=== PATIENT | female | born 1995 | race Caucasian/White ===

== ENCOUNTER 2016-10-13 14:41 | Emergency (ER) | payer MEDICAID, OTHER ==
[~2016-10-13] VITALS: Ht 167.6 cm; Wt 95.7 kg
[2016-10-13] MEDS ORDERED: ONDANSETRON 2MG/ML, 2ML IVPush ONE ×2 (15:30→18:30)
[2016-10-13] MEDS ORDERED: SODIUM CHLORIDE FLUSH 10ML SYR IVF ONE (15:30)
[2016-10-13] MEDS ORDERED: SODIUM CHLORIDE 0.9% 1,000ML IVBOLUS ONE (15:30)
[2016-10-13] MEDS ORDERED: KETOROLAC 30 MG/1 ML IVPush ONE (15:30)
[2016-10-13 16:01] LABS: BLOOD UREA NITROGEN 15 mg/dL (7-18)
[2016-10-13] MEDS ORDERED: KETOROLAC 30 MG/1 ML ONE (16:02)
[2016-10-13] MEDS ORDERED: ONDANSETRON 2MG/ML, 2ML ONE (16:02)
[2016-10-13 16:26] LABS: RAPID INFLUENZA A Negative (Negative); RAPID INFLUENZA B Negative (Negative)
[2016-10-13 16:48] LABS: HCG UR OBC PASS
[2016-10-13] MEDS ORDERED: HYDROmorphone 1 MG/ML, 1ML IVPush PRN (18:30)
[2016-10-13 18:39] VITALS: BP 114/65
== END 2016-10-13 18:41 | disposition home or self-care (01) ==
LOC: ED 17:06
DX: B34.9 Viral infection, unspecified (principal); N30.00 Acute cystitis without hematuria; F17.210 Nicotine dependence, cigarettes, uncomplicated; E11.9 Type 2 diabetes mellitus without complications
CPT/HCPCS: 36415; 71020; 80048; 81001; 81025; 82040; 85025; 87086; 87400; 96361; 96374; 96375; 99285; J1885; J2405; J7030

== ENCOUNTER 2017-04-04 05:15 | Emergency (ER) | payer MEDICAID ==
[~2017-04-04] VITALS: Ht 170.2 cm; Wt 105.0 kg
[2017-04-04 05:53] LABS: HEMOGLOBIN 15.1 g/dL (11.7-16.4); WHITE BLOOD COUNT 9.2 x10^3/uL (3.4-10)
[2017-04-04 05:54] LABS: HEMATOCRIT 43.7 % (34.6-47.8)
[2017-04-04 06:01] LABS: ASPARTATE AMINO TRANSFERASE 24 U/L (15-37); BLOOD UREA NITROGEN 8 mg/dL (7-18)
[2017-04-04] MEDS ORDERED: MAALOX/HYOSCYAMINE/LIDOCAINE 45 ML BTL ONE (06:58)
[2017-04-04] MEDS ORDERED: MAALOX/HYOSCYAMINE/LIDOCAINE 45 ML BTL PO ONE (07:00)
[2017-04-04 08:03] VITALS: BP 108/68
== END 2017-04-04 08:06 | disposition home or self-care (01) ==
LOC: ED 05:27
DX: K29.00 Acute gastritis without bleeding (principal); N30.00 Acute cystitis without hematuria; F17.210 Nicotine dependence, cigarettes, uncomplicated
CPT/HCPCS: 36415; 76700; 80053; 81001; 83690; 84703; 85025; 87077; 87086; 87147; 87186; 99285

== ENCOUNTER 2017-06-15 08:05 | Emergency (ER) | payer MEDICAID ==
[~2017-06-15] VITALS: Ht 170.2 cm; Wt 97.0 kg
[2017-06-15 08:06] VITALS: BP 131/87
[2017-06-15] MEDS ORDERED: PROPARACAINE OPHTH 0.5%, 15ML ONE (08:25)
[2017-06-15] MEDS ORDERED: FLUORESCEIN OPHTHALMIC 1 MG STRIP ONE (08:25)
== END 2017-06-15 09:09 | disposition home or self-care (01) ==
LOC: ED 09:03
DX: H10.023 Other mucopurulent conjunctivitis, bilateral (principal); E11.9 Type 2 diabetes mellitus without complications
CPT/HCPCS: 99283

== ENCOUNTER 2017-07-29 19:13 | Emergency (ER) | payer MEDICAID ==
[~2017-07-29] VITALS: Ht 170.2 cm; Wt 96.5 kg
[2017-07-29 19:14] VITALS: BP 143/91
[2017-07-29] MEDS ORDERED: LIDOCAINE-MPF 1%, 5ML INFIL ONE (19:30)
[2017-07-29] MEDS ORDERED: BUPIVACAINE/PF-EPI 0.25% 1:200K SQ ONE (19:30)
[2017-07-29] MEDS ORDERED: BUPIVACAINE 0.25% ONE (19:30)
[2017-07-29] MEDS ORDERED: HYDROcodone/APAP 5/325 TABLET ONE (19:54)
[2017-07-29] MEDS ORDERED: HYDROcodone/APAP 5/325 TABLET PO ONE (20:00)
== END 2017-07-29 20:13 | disposition home or self-care (01) ==
LOC: ED 20:05
DX: K08.89 Other specified disorders of teeth and supporting structures (principal)
CPT/HCPCS: 64400; 99284

== ENCOUNTER 2017-08-06 18:34 | Emergency (ER) | payer MEDICAID ==
[~2017-08-06] VITALS: Ht 170.2 cm; Wt 91.3 kg
[2017-08-06] MEDS ORDERED: OXYcodone/APAP 5/325MG TABLET ONE (19:09)
[2017-08-06] MEDS ORDERED: ONDANSETRON ODT 4 MG ONE (19:09)
[2017-08-06] MEDS ORDERED: LORazepam 2 MG/ML, 1ML ONE ×2 (19:09→19:14)
[2017-08-06] MEDS ORDERED: OXYcodone/APAP 5/325MG TABLET PO ONE (19:30)
[2017-08-06] MEDS ORDERED: ONDANSETRON ODT 4 MG PO ONE (19:30)
[2017-08-06 19:35] VITALS: BP 131/81
== END 2017-08-06 19:37 | disposition home or self-care (01) ==
LOC: ED 19:31
DX: K08.89 Other specified disorders of teeth and supporting structures (principal); E11.9 Type 2 diabetes mellitus without complications; F17.200 Nicotine dependence, unspecified, uncomplicated
CPT/HCPCS: 99283; Q0162

== ENCOUNTER 2018-05-31 09:54 | Emergency (ER) | payer MEDICAID ==
[2018-05-31] MEDS ORDERED: ONDANSETRON ODT 4 MG PO ONE (11:30)
[2018-05-31] MEDS ORDERED: PLEASE ENTER WEIGHT MC SCH (12:00)
[2018-05-31 12:20] LABS: BASOPHILS # (AUTO) 0.03 x10^3/uL (0-0.1); BASOPHILS % (AUTO) 0 % (0-1); EOSINOPHILS # (AUTO) 0.68 x10^3/uL (0-0.4); EOSINOPHILS % (AUTO) 6 % (1-7); LYMPHOCYTES # (AUTO) 2.18 x10^3/uL (1-3.4); LYMPHOCYTES % (AUTO) 20 % (22-44); MD NO; MEAN CORPUSCULAR HEMOGLOBIN 29.4 pg (27.0-34.8); MEAN CORPUSCULAR HGB CONC 33.9 g/dL (32.4-35.8); MEAN CORPUSCULAR VOLUME 86.8 fL (80-100); MEAN PLATELET VOLUME 7.3 fL (7.4-10.4); MONOCYTES % (AUTO) 5 % (2-9); NEUTROPHILS # (AUTO) 7.69 x10^3/uL (1.8-6.8); NEUTROPHILS % (AUTO) 69 % (42-75); PLATELET COUNT 370 x10^3/uL (130-400); RED BLOOD COUNT 4.97 x10^6/uL (3.82-5.3); RED CELL DISTRIBUTION WIDTH 13.7 % (9.6-15.2)
[2018-05-31 12:32] LABS: ALBUMIN 3.5 g/dL (3.4-5.0); ANION GAP 5 mmol/L (5-15); CHLORIDE 109 mmol/L (98-107)
[2018-05-31 12:38] LABS: ALANINE AMINOTRANSFERASE 34 U/L (12-78); BILIRUBIN,TOTAL 0.2 mg/dL (0.2-1.0); CREATININE 0.96 mg/dL (0.55-1.02); TOTAL PROTEIN 7.2 g/dL (6.4-8.2)
--- NOTE | 2018-05-31 12:39 | NUR ---
First contact with pt. Pt c/o epigastric pain and diarrhea x2 days. Pt denies N/V. Pt resting in bed, NADN. US tech at bedside to perform ordered studies. Pt encouraged to provide clean catch urine sample when US complete. Pt verbalizes understanding.
[2018-05-31 12:40] VITALS: BP 109/73
[2018-05-31 12:40] LABS: ALKALINE PHOSPHATASE 116 U/L (45-117)
[2018-05-31] MEDS ORDERED: ONDANSETRON ODT 4 MG ONE (12:57)
--- NOTE | 2018-05-31 13:05 | NUR ---
BREAK RN: PT RESTING QUIETLY, NO DISTRESS. CONTINUES TO DECLINE ZOFRAN. URINE SENT TO LAB. DR CHARLES IN TO RE-EVALUATE AND PT CLEARED FOR DISCHARGE. WILL CALL IF UA POSITIVE FOR INFECTION.
[2018-05-31 13:18] LABS: MICROSCOPIC AUTO
[2018-05-31 13:23] LABS: CULTURE INDICATED? YES
--- NOTE | 2018-05-31 13:23 | NUR ---
PT AMBULATING WELL UPON DEPARTURE.
== END 2018-05-31 13:24 | disposition home or self-care (01) ==
LOC: ED 13:17
DX: R10.84 Generalized abdominal pain (principal); R19.7 Diarrhea, unspecified; E11.9 Type 2 diabetes mellitus without complications
CPT/HCPCS: 36415; 76700; 80053; 81001; 83690; 84703; 85025; 87077; 87086; 87186; 99284

== ENCOUNTER 2018-07-17 18:20 | Emergency (ER) | payer MEDICAID ==
[~2018-07-17] VITALS: Ht 170.2 cm; Wt 93.0 kg
[2018-07-17 18:33] VITALS: BP 115/88
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
--- NOTE | 2018-07-17 19:05 | NUR ---
PIV PLACED AT THIS TIME. PT DOES NOT HAVE BRUISING IN ABD AT THIS TIME. PT DOES REPORT PAIN IN ABD AREA. PT RESTING IN ROOM.
[2018-07-17 19:17] LABS: BASOPHILS # (AUTO) 0.03 x10^3/uL (0-0.1); BASOPHILS % (AUTO) 0 % (0-1); EOSINOPHILS # (AUTO) 0.48 x10^3/uL (0-0.4); EOSINOPHILS % (AUTO) 5 % (1-7); LYMPHOCYTES # (AUTO) 2.55 x10^3/uL (1-3.4); LYMPHOCYTES % (AUTO) 25 % (22-44); MD NO; MEAN CORPUSCULAR HEMOGLOBIN 29.4 pg (27.0-34.8); MEAN CORPUSCULAR HGB CONC 34.1 g/dL (32.4-35.8); MEAN CORPUSCULAR VOLUME 86.4 fL (80-100); MEAN PLATELET VOLUME 7.5 fL (7.4-10.4); MONOCYTES # (AUTO) 0.69 x10^3/uL (0.2-0.8); MONOCYTES % (AUTO) 7 % (2-9); NEUTROPHILS # (AUTO) 6.31 x10^3/uL (1.8-6.8); NEUTROPHILS % (AUTO) 63 % (42-75); PLATELET COUNT 359 x10^3/uL (130-400); RED BLOOD COUNT 4.85 x10^6/uL (3.82-5.3); RED CELL DISTRIBUTION WIDTH 14.1 % (9.6-15.2)
[2018-07-17 19:18] LABS: ALANINE AMINOTRANSFERASE 42 U/L (12-78); ALBUMIN 3.4 g/dL (3.4-5.0); ANION GAP 5 mmol/L (5-15); CALCIUM 8.6 mg/dL (8.5-10.1); CHLORIDE 110 mmol/L (98-107); CREATININE 0.91 mg/dL (0.55-1.02)
[2018-07-17 19:23] LABS: ALKALINE PHOSPHATASE 87 U/L (45-117); BILIRUBIN,TOTAL 0.4 mg/dL (0.2-1.0); TOTAL PROTEIN 6.9 g/dL (6.4-8.2)
--- NOTE | 2018-07-17 20:08 | NUR ---
Patient/Caregiver given discharge instructions and they have confirmed that they understand the instructions. Patient ambulatory with steady gait.
[2018-07-17] MEDS ORDERED: OMNIPAQUE 350 MG/ML, 100ML BOTTLE ONE (22:25)
== END 2018-07-17 20:15 | disposition home or self-care (01) ==
LOC: ED 20:13
DX: S30.1XXA Contusion of abdominal wall, initial encounter (principal); E11.9 Type 2 diabetes mellitus without complications; V43.53XA Car driver injured in collision with pick-up truck in traffic accident, initial encounter; Y93.89 Activity, other specified; Y92.89 Other specified places as the place of occurrence of the external cause; Y99.8 Other external cause status
CPT/HCPCS: 36415; 71046; 74177; 80053; 84703; 85025; 99284; Q9967

== ENCOUNTER 2018-09-22 21:31 | Emergency (ER) | payer MEDICAID ==
[~2018-09-22] VITALS: Ht 170.2 cm; Wt 95.0 kg
[2018-09-22 21:34] VITALS: BP 134/91
[2018-09-22] MEDS ORDERED: MAALOX/HYOSCYAMINE/LIDOCAINE 45 ML BTL PO ONE (22:30)
[2018-09-22] MEDS ORDERED: ONDANSETRON ODT 4 MG PO ONE (22:30)
[2018-09-22] MEDS ORDERED: FAMOTIDINE 20 MG TABLET PO ONE (22:30)
--- NOTE | 2018-09-22 22:45 | NUR ---
PT REFUSING LABS AND WANTS TO GO HOME. NOTIFIED AND WILL TALK TO PT.
--- NOTE | 2018-09-22 23:03 | NUR ---
PT ELOPED PRIOR TO SPEAKING TO .
== END 2018-09-22 23:06 | disposition left against medical advice (07) ==
LOC: ED 23:00
DX: R10.13 Epigastric pain (principal); R10.12 Left upper quadrant pain
CPT/HCPCS: 99281